=== PATIENT | female | born 1995 | race Caucasian/White ===

== ENCOUNTER 2023-07-03 20:15 | Outpatient (REF) | payer OTHER, SELFPAY ==
[2023-07-09 17:09] LABS: Age Gdln ACOG Testing Note (.); IGP, rfx Aptima HPV ASCU Note (.)
== END 2023-07-03 20:16 | disposition home or self-care (01) ==
LOC: LAB 20:15
PROVIDERS: PCP Obstetrics & Gynecology; Visit Provider Obstetrics & Gynecology
DX: Z12.4 Encounter for screening for malignant neoplasm of cervix (principal)
CPT/HCPCS: G0145

== ENCOUNTER 2025-08-19 16:37 | Outpatient (OUT) | payer OTHER, SELFPAY ==
[2025-08-19 16:58] LABS: Hematocrit 36.7 % (36.0-48.0); Hemoglobin 12.6 g/dL (12.0-16.0); Immature Granulocytes Abs Auto 0.01 10^3/uL (0.00-0.03); Immature Granulocytes Pct Auto 0.1 % (0.0-0.5); Lymphocytes Absolute Auto 2.4 10^3/uL (1.2-3.8); Mean Corpuscular HGB Conc 34.3 g/dL (29.9-35.2); Mean Corpuscular Hemoglobin 31.9 pg (26.7-34.0); Mean Corpuscular Volume 92.9 fL (81.0-99.0); Platelet Count 436 10^3/uL (150-450); Red Blood Count 3.95 10^6/uL (4.20-5.40); White Blood Count 7.2 10^3/uL (4.0-11.0)
[2025-08-19 17:30] LABS: Alanine Aminotransferase 24 U/L (14-59); Alkaline Phosphatase 55 U/L (46-116); Anion Gap 12.1; Aspartate Amino Transferase 15 U/L (15-37); Blood Urea Nitrogen 13.0 mg/dL (7.0-18.0); Calcium 9.0 mg/dL (8.5-10.1); Carbon Dioxide 27.3 mmol/L (21.0-32.0); Chloride 106 mmol/L (98-107); Estimated GFR (African America >60 (>=60 mL/min/1.73m^2); Estimated GFR (Non-African Ame >60 (>=60 mL/min/1.73m^2); Glucose 87 mg/dL (74-106); Potassium 3.4 mmol/L (3.5-5.1); Sodium 142 mmol/L (136-145)
[2025-08-19 17:31] LABS: Albumin Globulin Ratio 0.9; Albumin Level 3.4 g/dL (3.4-5.0); Cholesterol 140 mg/dL (<=200); Globulin 3.6 g/dL; HDL Cholesterol 65 mg/dL (40-60); Thyroid Stimulating Hormone 0.895 uIU/mL (0.358-3.740); Total Protein 7.0 g/dL (6.4-8.2); Triglycerides 33 mg/dL (<=150); VLDL CHOLESTEROL 6.6 mg/dL
== END 2025-08-19 16:38 | disposition home or self-care (01) ==
PROVIDERS: Visit Provider Physician Assistant
DX: L02.91 Cutaneous abscess, unspecified (principal); R53.83 Other fatigue
CPT/HCPCS: 36415; 80053; 80061; 83036; 84443; 85025; 87070; 87075; 87077; 87186

== ENCOUNTER 2025-08-19 20:27 | Outpatient (REF) | payer OTHER, SELFPAY | END 2025-08-19 20:28 | disposition home or self-care (01) | LOC: LAB 20:27 | PROVIDERS: Visit Provider Physician Assistant | DX: L02.91 Cutaneous abscess, unspecified (principal) | CPT/HCPCS: 87070; 87075; 87077; 87186 ==